=== PATIENT | female | born 1995 | race Two or more races ===

== ENCOUNTER 2017-03-06 11:43 | Emergency (ER) | payer MEDICAID ==
[~2017-03-06] VITALS: Ht 165.1 cm; Wt 65.5 kg
[2017-03-06 12:55] LABS: BASOPHIL % 0.5 % (0-2); PLATELET COUNT 232 x10^3mcL (130-400); RED CELL DISTRIBUTION WIDTH 13.9 % (11.5-14.5)
[2017-03-06 13:01] LABS: CALCIUM 8.6 mg/dL (8.5-10.1); CARBON DIOXIDE 27.5 mmol/L (21-32); CHLORIDE SERUM 106 mmol/L (98-107); CREATININE SERUM 0.8 mg/dL (0.6-1.0); GFR1 > 60 mL/min; GLUCOSE SERUM 89 mg/dL (74-106); POTASSIUM SERUM 3.4 mmol/L (3.5-5.1); SODIUM SERUM 140 mmol/L (136-145)
[2017-03-06 15:15] VITALS: BP 127/92
== END 2017-03-06 15:15 | disposition home or self-care (01) ==
LOC: ED 11:43
PROVIDERS: Emergency Medicine
DX: E87.6 Hypokalemia (principal); M79.641 Pain in right hand
CPT/HCPCS: J7030

== ENCOUNTER 2019-08-31 16:51 | Emergency (ER) | payer MEDICAID ==
[~2019-08-31] VITALS: Ht 175.3 cm; Wt 77.1 kg
[2019-08-31 17:21] VITALS: BP 116/85; Ht 175.3 cm; Wt 77.1 kg
== END 2019-08-31 19:32 | disposition home or self-care (01) ==
LOC: ED 16:51
DX: S93.402A Sprain of unspecified ligament of left ankle, initial encounter (principal); X50.1XXA Overexertion from prolonged static or awkward postures, initial encounter; Y93.89 Activity, other specified; Y92.89 Other specified places as the place of occurrence of the external cause; Y99.8 Other external cause status